=== PATIENT | female | born 1950 | race Caucasian/White ===

== ENCOUNTER 2019-04-27 17:33 | Emergency (ER) | payer MEDICARE ==
[~2019-04-27] VITALS: Ht 160 cm; Wt 85.9 kg
[~2019-04-27 17:33] MED LIST: ASPI-1 PO; GABA-532 PO; GLIP5TAB13 PO; LEVO100T9 PO; LISI1TAB28 PO; MELO-102 PO; PANT40TA4 PO; PER10325T PO; PRAV20TA4 PO; SENN-173 PO
[2019-04-27] MEDS ORDERED: HYDR-3965 PO (19:58)
[2019-04-27] MEDS ORDERED: ketorolac trometh inj. 60 MG/2 ML VIAL IM ONE (20:00)
[2019-04-27 20:15] VITALS: BP 116/66
== END 2019-04-27 20:26 | disposition home or self-care (01) ==
LOC: ER 17:33
DX: S20.211A Contusion of right front wall of thorax, initial encounter (principal); R94.8 Abnormal results of function studies of other organs and systems; I10 Essential (primary) hypertension; E11.9 Type 2 diabetes mellitus without complications; Z98.890 Other specified postprocedural states; Z88.0 Allergy status to penicillin; Z79.82 Long term (current) use of aspirin; Z79.899 Other long term (current) drug therapy; V89.2XXA Person injured in unspecified motor-vehicle accident, traffic, initial encounter; Y93.89 Activity, other specified; Y92.89 Other specified places as the place of occurrence of the external cause; Y99.8 Other external cause status
CPT/HCPCS: 71250; 93005; 96372; 99284; J1885

== ENCOUNTER 2023-06-23 15:38 | Emergency (ER) | payer MEDICARE ==
[~2023-06-23] VITALS: Ht 160 cm; Wt 93.4 kg
[~2023-06-23 15:38] MED LIST changes: -GLIP5TAB13 PO; +GLIP5TAB23 PO; -LISI1TAB28 PO; +LISI1TAB51 PO; -PANT40TA4 PO; +PANT40TA54 PO; -SENN-173 PO; +SENN-362 PO
[2023-06-23] MEDS ORDERED: LIDOcaine 5% patch TP STA (16:37)
[2023-06-23] MEDS ORDERED: HYDROcodone/acetaminophen 10/325mg tab PO ONE (16:40)
[2023-06-23] MEDS ORDERED: METH4TAB81 PO (17:04)
[2023-06-23] MEDS ORDERED: HYDR-3973 PO (17:04)
[2023-06-23 17:16] VITALS: BP 144/88; PULSE 80; RESP 20; TEMP 97.6; O2SAT 98
== END 2023-06-23 17:17 | disposition home or self-care (01) ==
LOC: ER 15:39
DX: M19.90 Unspecified osteoarthritis, unspecified site (principal); I10 Essential (primary) hypertension; E11.9 Type 2 diabetes mellitus without complications; Z88.0 Allergy status to penicillin; Z79.899 Other long term (current) drug therapy
CPT/HCPCS: 73030; 99283

== ENCOUNTER 2024-09-02 03:33 | Emergency (ER) | payer MEDICARE ==
[~2024-09-02] VITALS: Ht 160 cm; Wt 93.2 kg
[~2024-09-02 03:33] MED LIST changes: +METH4TAB81 PO
[2024-09-02 03:41] VITALS: BP 172/77; PULSE 72; O2SAT 97
[2024-09-02] MEDS: HYDROcodone/acetaminophen 5mg/325mg tablet PO ONE (04:38)
[2024-09-02 04:56] VITALS: RESP 18
[2024-09-02 05:04] VITALS: TEMP 98.7
== END 2024-09-02 05:06 | disposition home or self-care (01) ==
LOC: ER 03:33
DX: M79.641 Pain in right hand (principal); M19.90 Unspecified osteoarthritis, unspecified site; E03.9 Hypothyroidism, unspecified; E11.9 Type 2 diabetes mellitus without complications; E78.00 Pure hypercholesterolemia, unspecified; I10 Essential (primary) hypertension; Z88.0 Allergy status to penicillin; Z79.82 Long term (current) use of aspirin
CPT/HCPCS: 73130; 99283

== ENCOUNTER 2025-03-06 12:21 | Observation (INO) | payer MEDICARE ==
[~2025-03-06] VITALS: Ht 154.9 cm; Wt 89.9 kg
[~2025-03-06 12:21] MED LIST changes: +PRAV20TA17 PO; -PRAV20TA4 PO
--- NOTE | 2025-03-06 12:49 | ELECTROCARDIOGRAPH REPORT ---
[facility] Test Date: 2025-03-06 Test Time: 12:46:15 Pat Name: MARTIN WILLIAMSON Department: EMERGENCY ROOM Room: Gender: F [employer] Operator: GUILLERMO : 1950 Requested By: STANLEY CHAN Order Number: [id number] Reading MD: Measurements Intervals [place] Rate: 74 P: 51 VA: 169 QRS: -42 QRSD: 95 T: 77 QT: 417 QTc: 463 Interpretive Statements Sinus rhythm Left anterior fascicular block Low voltage, precordial leads Consider right ventricular hypertrophy Consider anterior infarct Please click the below link to view image of tracing.
[2025-03-06] MEDS: famotidine/PF 10 mg/ml inj IV ONE (12:57)
--- NOTE | 2025-03-06 13:07 | Physician Documentation ---
Addendum CHIEF COMPLAINT/HPI: The patient is a 74-year-old female who began developing generalized itching, swelling of the eyelids and feeling of throat swelling approximately a 1/2 hour after taking a tablet of Bactrim. She is being treated with Botox for her bladder. She was instructed to take Bactrim prior to and subsequent to the treatment. She took the 1st dose at approximately 10 30 this morning and approximately a 1/2 hour later developed the above-mentioned symptoms. REVIEW OF SYSTEMS: Constitutional: Denies chills, fatigue, fever, weight gain or weight loss. HEENT: Feeling of swelling in the throat and eyelid swelling. Respiratory: Denies cough, shortness of breath or wheezing. Cardiovascular: Denies chest pain, pain while walking (claudication), edema or palpitations. Gastrointestinal: Denies abdominal pain, blood in stool, constipation, diarrhea, heartburn, loss of appetite, nausea or vomiting. Genitourinary: Denies painful urination (dysuria), excessive amount of urine (polyuria) or urinary frequency. Metabolic/Endocrine: Denies cold intolerance, heat intolerance, excessive thirst (polydipsia) or excessive hunger (polyphagia). Neurological: Denies dizziness, extremity numbness, extremity weakness, headach es, seizures or tremors. Psychiatric: Denies anxiety or depression. Integumentary: Denies breast discharge, breast lump, hives, mole change(s), rash or skin lesion. Musculoskeletal: Denies back pain, joint pain, joint swelling or neck pain. Hematologic: Denies easily bleeding, easily bruises, lymphedema or issues with blood clots. Immunologic: Denies food allergies or seasonal allergies. PHYSICAL EXAMINATION: Vitals and nursing note reviewed. Constitutional: General: Patient is awake, alert, oriented x 4 in no acute distress and well appearing. Speech is clear and lucid. Appearance: Normal appearance. Patient is not ill-appearing, toxic-appearing or diaphoretic. HENT: Head: Normocephalic and atraumatic. Mouth: Mucous membranes are moist. Pharynx: Oropharynx is clear. Eyes: General: Lids are mild to moderately swollen, more on the right side. Extraocular Movements: Extraocular movements intact. Pupils: Pupils are equal, round, and reactive to light. Neck: Supple, no Kernig or Brudzinski sign. Cardiovascular: Rate and Rhythm: Normal rate and regular rhythm. Heart sounds: No murmur heard. Pulmonary: Effort: No respiratory distress. Breath sounds: No wheezing, rhonchi or rales. Abdominal: General: There is no distension. Palpations: There is no fluid wave, hepatomegaly or mass. Tenderness: There is no abdominal tenderness. There is no guarding. Musculoskeletal: General: No swelling or deformity. Skin: Coloration: Skin is not jaundiced. Findings: No erythema or rash. Neurological: Mental Status: Patient is alert. MEDICAL DECISION MAKING: This 74-year-old female presents with classic allergic reaction approximately a 1/2 hour after taking Bactrim. She is receiving epinephrine, famotidine, Benadryl and Solu-Medrol. She is in no respiratory distress. I will get her admitted for overnight observation. Departure Disposition: ADMITTED INPATIENT Admitted to Inpatient Unit: to hospitalist Admission Level of Care: Med/Surg with Tele Impression: Primary Impression: Allergy to sulfa drugs Condition: Fair KENNEDY HUBBARD MD Mar 06, 2025 13:07
[2025-03-06] MEDS: diazepam inj 5 MG/ML inj. IV ONE (13:20)
[2025-03-06 13:46] LABS: MEAN PLATELET VOLUME 9.6 FL (7.4-10.4); RED CELL DISTRIBUTION WIDTH 15.5 % (11.5-14.5)
[2025-03-06 14:09] LABS: CREATININE 0.86 MG/DL (0.40-0.90); TOTAL CARBON DIOXIDE 25.7 MMOL/L (24-32); eCRCL 44 ML/MIN; eGFR 65 ML/MIN
[2025-03-06] MEDS: potassium Cl 20 mEq SR tablet PO ONE (14:40)
[2025-03-06] MEDS ORDERED: morphine 4 MG/ML inj SYRINge IV PRN (16:50)
[2025-03-06] MEDS ORDERED: mag hydrox/Alum hydrox/simeth 30ml oral suspension PO PRN (16:50)
[2025-03-06] MEDS ORDERED: magnesium sulf-water 4G/100mL 100 ML IV PRN (16:50)
[2025-03-06] MEDS ORDERED: magnesium Cl slow-release 64mg tablet PO PRN (16:50)
[2025-03-06] MEDS ORDERED: HYDROmorphone/PF 0.2 MG/ML SYRINGE IV PRN (16:50)
[2025-03-06] MEDS ORDERED: potassium Cl 20 mEq SR tablet PO PRN (16:50)
[2025-03-06] MEDS ORDERED: magnesium hydroxide 30ml (MOM) UD suspension PO PRN (16:50)
[2025-03-06] MEDS ORDERED: ondansetron/PF 4mg/2ml inj IV PRN (16:50)
[2025-03-06] MEDS ORDERED: magnesium sulf-water 2g/50mL 50 ML IV PRN (16:50)
[2025-03-06] MEDS: polyvinyl alcohol eye drops 15ML BOTTLE EACHEYE PRN (17:43)
--- NOTE | 2025-03-06 18:13 | HISTORY AND PHYSICAL-Residence ---
History & Physical Providers to CC Resident Creating Document: PABLITO SHIRLEY, OLI ~ History of Present Illness Reason for Admit\Complaint: Allergic Reaction to Bactrim History of Present Illness This is a 74-year-old female with past medical history of hypertension, hyperlipidemia, type 2 diabetes mellitus, presented in ER with complain of shortness of breath and generalized itching. Today in the morning the patient underwent Botox treatment for bladder condition and after the Botox she was prescribed Bactrim, approximately 30 minutes after taking the Bactrim she developed generalized pruritus hives bilateral periorbital swelling more prominent on the right side, eyes were also itching and burning,and right cheek swelling ,throat pain ,shortness of breath with wheezing. She also reports headache.She denies lip or tongue swelling, chest pain nausea or vomiting. In addition to that she also reports history of multiple falls with the most recent occurring two weeks ago in the bathroom which she attributed to dizzines and she feels dizzy and patient reports occasional dizziness occasional dizziness upon standing from sitting position. Apart from that she also mentions history of cardiac condition as he described as skipped beats or irregular rhythm but she is unable to provide specific details for that as she dont remember. Allergies: Coded Allergies: Sulfa (Sulfonamide Antibiotics) (Verified Allergy, Intermediate, 03/06/25) Penicillins (Verified Allergy, Mild, RASH, 03/06/25) Uncoded Allergies: POLYTECHNIC REGISTRAR TAPE (Allergy, Unknown, 10/26/16) PCN (Allergy, Unknown, RASH, 11/10/16) Home Medications Home Medications Active Gabapentin 300 Mg Capsule 300 Mg PO TID 30 Days Aspirin 325 Mg Tablet 325 Mg PO Q24H@0830 42 Days Percocet 10/325 MG* (Oxycodone/Acetaminophen) 10 Mg/325 Mg Tablet 2 Tab PO Q4H PRN 30 Days Senna Lax (Sennosides) 8.6 Mg Tablet 17.2 Mg PO HS 30 Days Reported Meloxicam 15 Mg Tablet 1 Tab PO DAILY 30 Days Pantoprazole Sodium 40 Mg Tablet.dr 40 Mg PO DAILY Lisinopril-Hctz 20-12.5 mg Tab (Lisinopril/Hydrochlorothiazide) 1 Each Tablet 1 Tab PO DAILY Glipizide 5 Mg Tablet 1 Tab PO DAILY Pravastatin Sodium 20 Mg Tablet 1 Tab PO DAILY Levothyroxine Sodium 100 Mcg Tablet 100 Mcg PO QAM Past Medical History Past Medical History Type 2 diabetes mellitus Hypertension Hyperlipidemia Osteoarthritis of the hips and shoulders Patient reports some irregular skipped beats but she do not know exactly what it was and is scheduled for pacemaker placement with Dr. Parra Migraine Uterine cancer Past Surgical History Surgical History Comment Cholecystectomy Bilateral knee replacement She underwent hysterectomy for uterine cancer Family History Family History: (Cancer) Malignant carcinoid tumor MOTHER FH: breast cancer (grandmother) FH: dementia (mother) MOTHER FH: emphysema (father) FH: hepatitis (sister hepatitis c) FH: lung cancer (father) Past Social History Social History Comment Smoked for four years from age [age]. Denies alcohol and recreational drug and other recreation drug uses Lives in home with Alcohol Use: None ROS ROS All reviewed and negative except pertinent positive findings mentioned in HPI. Exam Vitals: Vital Signs Date Time Temp Pulse Resp B/P (MAP) Pulse Ox O2 Delivery O2 Flow Rate FiO2 03/06/25 17:21 82 14 152/122 (132) 92 0 03/06/25 12:22 97.6 General: General: awake, alert oriented to place, time, and person HEENT: No pallor present, no icterus, moist mucous membranes Neck: No masses and tenderness Resp: Unlabored. Lungs clear to auscultation bilaterally. Chest: Normal expansion. Cardiovascular: Regular Rate and rhythm, normal S1 and S2 without murmur, rub or gallop Abdomen: Soft and non tender in epigastrium, no organomegaly, no guarding and rigidity, bowel sounds present Neuro: No focal weakness in the upper and lower limb muscles, power of the muscles 5/5 bilateral upper and lower extremities, normal reflexes bilaterally. Cranial nerves intact Extremities: No cyanosis,clubbing or edema Skin: Warm and Dry. Psych: Normal affect Diagnostic Data Last Recorded Lab Results: 03/07/[id number]/07/[id number] Advance Care Planning Advanced Care plannin - 30 Minutes (I spent 17 minutes in discussing various resuscitative measures with the patient and she chose to be DNR) Additional Plan This is a 74-year-old female with past medical history of hypertension, hyperlipidemia type 2 diabetes mellitus presented in ER with chief complaint of shortness of breath, wheezing and generalized itching. Admitting patient in view of Bactrim allergy. Allergic Reaction Secondary to Bactrim On POA patient blood pressure was was high, which suggest she less likely she had anaphylaxis reaction Patient received Epinephrine and Solu-Medrol. After epinephrine patient was feeling shaky in view of that patient received Valium 5 mg in the ER. Avoid offending agent and avoid sulfa drugs Started patient on Benadryl 25 mg Iv Q6h PRN Started patient on famotidine Started patient on prednisone 40 mg PO Hypokalemia K is 3.0 Placed on K protocol Dizziness upon standing from sitting position Possible orthostatic, follow up with orthostatic vitals Type 2 Diabetes Mellitus HbA1c awaiting Patient placed on hyperglycemia/hypoglycemia protocol Lantus 10 unit Hypothyroidism TSH normal Continue levothyroxine 100 mcg Hyperlipidemia Started patient on atorvastatin 20 mg Lipid panel awaiting Hypertension Continue lisinopril-Hctz 20-12.5 mg Code Status: DNR DVT Prophylaxis: Heparin GI prophylaxis: Pantoprazole 40 mg PO Disposition: Admitted patient view of allergic reaction to Bactrim, we will continue to monitor patient Possible discharge tomorrow. Pablito Shirley PGY1 IM Addendum pt was intended to be placed under observation Date of Service: Mar 06, 2025 Billing Provider: MERVAT HERZOG MD Common Visit Codes: 70773-[id number] INP/OBS CARE (HIGH) Secondary Visit Codes: 41625-[id number] CARE PLAN 30 MINUTES PABLITO SHIRLEY, RES Mar 06, 2025 18:12 MERVAT HERZOG MD Mar 08, 2025 07:15
[2025-03-06] MEDS ORDERED: DEXTROSE 15 GM of carb/4 tabs (each vial/BOTTLE has 4 tablets) PO PRN ×2 (18:40)
[2025-03-06] MEDS ORDERED: glucagon, human recombinant 1mg kit SUBCUT PRN (18:40)
[2025-03-06] MEDS ORDERED: dextrose 50%-water 50ml dispensing syringe IV PRN ×2 (18:40)
[2025-03-06] MEDS: K and/or MAG REPLACEMENT MC SCH (20:00)
[2025-03-06] MEDS: docusate sod 100mg capsule PO SCH (20:16)
[2025-03-06] MEDS: HYDROcodone/acetaminophen 5mg/325mg tablet PO PRN (20:16)
[2025-03-06] MEDS: heparin, porcine 5000 units/ml vial SQ SCH (20:17)
[2025-03-06] MEDS: INSULIN LISPRO 100 UNIT/ML INSULN.PEN MULTI-DOSE SQ SCH (20:30)
[2025-03-06] MEDS: insulin glargine (Lantus) pen - multi-dose SQ SCH (22:00)
[2025-03-06] MEDS: HYDROmorphone inj. 0.5 MG/0.5 ML DISP.SYRIN IV PRN (23:02)
[2025-03-06] MEDS: potassium Cl 20 mEq SR tablet PO PRN (23:02)
[2025-03-06] MEDS: potassium Cl 40MEQ/1/2NS 520ml 520 ML IV PRN (23:46)
[2025-03-06] MEDS: potassium Cl 40MEQ/1/2NS 520ml 520 ML IV ONE (23:47)
[2025-03-07] MEDS ORDERED: HALLS - SOOTHE MENTHOL 1.8 MG cough drop LOZENGE MM PRN (00:20)
[2025-03-07 00:45] VITALS: BP 150/79; PULSE 69; RESP 16; TEMP 97.8; O2SAT 96
[2025-03-07 01:00] VITALS: RESP 16; O2SAT 96
[2025-03-07 02:00] VITALS: BP 139/65; PULSE 66; RESP 16; TEMP 98; O2SAT 95
[2025-03-07 07:47] LABS: APTT 25 SECONDS (22-32); INR 1.2 INR
[2025-03-07] MEDS ORDERED: levoTHYROXINE 100mcg tablet PO SCH (08:00)
[2025-03-07] MEDS ORDERED: pantoprazole 40mg Tablet.DR PO SCH (08:00)
[2025-03-07 08:05] LABS: CREATININE 1.03 MG/DL (0.40-0.90); TOTAL CARBON DIOXIDE 28.1 MMOL/L (24-32); eCRCL 37 ML/MIN; eGFR 53 ML/MIN
[2025-03-07 08:07] LABS: PHOSPHORUS 2.9 MG/DL (2.3-4.5)
[2025-03-07 08:53] LABS: MEAN PLATELET VOLUME 9.7 FL (7.4-10.4); RED CELL DISTRIBUTION WIDTH 15.3 % (11.5-14.5)
--- NOTE | 2025-03-07 20:53 | DISCHARGE SUMMARY-Residence ---
Discharge Summary Providers to CC Resident Creating Document: KUSHAL SHIRLEY RES ~ Discharge Summary Admission Diagnosis: Allergic Reaction Hospital Course DATE OF ADMISSION: 03/06/25 DATE OF DISCHARGE: 03/07/25 Discharge Diagnosis\Comment: Allergic Reaction Diabetes Mellitus type 2 Operations\Procedures: none Consultants: none Complications: none Condition on DC: Unstable Discharge Summary: History of Present Illness This is a 74-year-old female with past medical history of hypertension, hyperlipidemia, type 2 diabetes mellitus, presented in ER with complain of shortness of breath and generalized itching. Today in the morning the patient underwent Botox treatment for bladder condition and after the Botox she was prescribed Bactrim, approximately 30 minutes after taking the Bactrim she de veloped generalized pruritus hives bilateral periorbital swelling more prominent on the right side, eyes were also itching and burning,and right cheek swelling ,throat pain ,shortness of breath with wheezing. She also reports headache.She denies lip or tongue swelling, chest pain nausea or vomiting. HPI In addition to that she also reports history of multiple falls with the most recent occurring two weeks ago in the bathroom which she attributed to dizzines and she feels dizzy and patient reports occasional dizziness occasional dizziness upon standing from sitting position. Apart from that she also mentions history of cardiac condition as he described as skipped beats or irregular rhythm but she is unable to provide specific details for that as she dont remember. Hospital Course This is a 74-year-old female with past medical history of hypertension, hyper lipidemia, type 2 diabetes mellitus, presented in ER with complain of shortness of breath and generalized itching. She received epinephrine inj, solumedrol 125 mg. Her symptoms improved significantly and was placed on benadryland famotidine. For diabetes she received lantus and lispro. DVT prophylaxis she received Heparin Patient LEFT AMA in the morning She left Against Medical Advice *Problems/Diagnosis: (1) Allergy to sulfa drugs Status: Acute Total Time Spent on D/C: Up to 30 Minutes Date of Service: Mar 07, 2025 Billing Provider: MERVAT HERZOG MD Common Visit Codes: 61600-GVW/OBS DISCH DAY <30MIN, 78728-TOL/OBS DISCH DAY >30min KUSHAL SHIRLEY RES Mar 07, 2025 20:48 MERVAT HERZOG MD Mar 08, 2025 07:14
== END 2025-03-07 10:08 | disposition home or self-care (01) ==
LOC: ER 12:21 → PCU 3S 16:51 → UNDOADMIN 16:51 → ED HOLD 16:51 → PCU 3S 03-07 00:56 → ED HOLD 03-07 00:56 → UNDODISIN 03-07 10:08
PROVIDERS: ADMIT Internal Medicine; ATTEND Internal Medicine
DX: T78.40XA Allergy, unspecified, initial encounter (principal); E11.9 Type 2 diabetes mellitus without complications; I10 Essential (primary) hypertension; E78.5 Hyperlipidemia, unspecified; Z79.899 Other long term (current) drug therapy; Z98.890 Other specified postprocedural states; X58.XXXA Exposure to other specified factors, initial encounter; Y93.89 Activity, other specified; Y92.89 Other specified places as the place of occurrence of the external cause; Y99.8 Other external cause status
CPT/HCPCS: 80048; 80053; 82948; 83735; 84100; 84443; 85610; 85730; 86140; 93005; 96365; 96366; 96372; 96375; 99284; G0378; J1171; J1815; J2919; J3360; Q0163; 36415; 83036; 85025; 85651; 87081; 96374; 96376; 99285; A6258; J0169; J1200; J1644; J3480; J3490